=== PATIENT | female | born 1945 | race American Indian/Alaskan Native ===

== ENCOUNTER 2019-06-07 13:21 | Outpatient (CLI) | payer MEDICARE, OTHER ==
--- NOTE | 2019-06-08 12:59 | Mammography Report ---
DIGITAL SCREENING MAMMOGRAM WITH CAD, 06/07/2019 INDICATION: Routine screening mammography. TECHNIQUE: Digital bilateral 2D mammography was obtained in the craniocaudal and mediolateral obliq ue projections. This examination was interpreted with the benefit of Computer-Aided Detection analysi s. COMPARISON: 05/19/2018 FINDINGS: Breast Density: The breasts are heterogeneously dense, which may obscure small masses. There is no evidence of dominant mass, suspicious calcifications or architectural distortion in eithe r breast. IMPRESSION: No mammographic evidence of malignancy. Follow up recommendation: Routine yearly BI-RADS Category 1: Negative. A "normal" or negative report should not discourage follow up or biopsy of a clinically significant f inding. A written summary of these findings will be mailed to the patient. The patient will be entered into a mammography reporting system which will generate a reminder letter for the patient's next appointmen t at the appropriate interval. The [employer] recommends yearly mammograms starting at age 40 and continuing as l teddy as a woman is in good health. Breast MRI is recommended for women with an approximate 20-25% or greater lifetime risk of breast cancer, including women with a strong family history of breast or ova betty cancer or who have been treated for Hodgkin's disease. Signer Name: Filiberto Randhawa MD Signed: 06/08/2019 12:55 PM Workstation Name: [id number]
== END 2019-06-07 13:22 | disposition home or self-care (01) ==
LOC: SPVWC 13:21
PROVIDERS: ATTEND Family Medicine
DX: Z12.31 Encounter for screening mammogram for malignant neoplasm of breast (principal)
CPT/HCPCS: 77067

== ENCOUNTER 2020-08-17 14:21 | Outpatient (CLI) | payer MEDICARE, OTHER ==
--- NOTE | 2020-08-20 09:15 | Mammography Report ---
DIGITAL SCREENING MAMMOGRAM WITH CAD, 08/17/2020 CLINICAL INFORMATION / INDICATION: Routine screening mammography. TECHNIQUE: Digital bilateral 2D mammography was obtained in the craniocaudal and mediolateral obliqu e projections. This examination was interpreted with the benefit of Computer-Aided Detection analysis . COMPARISON: 06/07/2019, 05/19/2018 FINDINGS: Breast Density: The breasts are heterogeneously dense, which may obscure small masses. No dominant mass, suspicious calcifications, or architectural distortion in either breast. Bilateral benign-appearing calcifications have not significant change. IMPRESSION: No mammographic evidence of malignancy. Follow up recommendation: Routine yearly BI-RADS Category 2: Benign. A "normal" or negative report should not discourage follow up or biopsy of a clinically significant f inding. A written summary of these findings will be mailed to the patient. The patient will be entered into a mammography reporting system which will generate a reminder letter for the patient's next appointmen t at the appropriate interval. The [employer] recommends yearly mammograms starting at age 40 and continuing as l teddy as a woman is in good health. Breast MRI is recommended for women with an approximate 20-25% or greater lifetime risk of breast cancer, including women with a strong family history of breast or ova betty cancer or who have been treated for Hodgkin's disease. Signer Name: Wesley Weiner MD Signed: 08/20/2020 9:11 AM Workstation Name: [id number]
== END 2020-08-17 14:22 | disposition home or self-care (01) ==
LOC: SPVWC 14:21
PROVIDERS: ATTEND Family Medicine
DX: Z12.31 Encounter for screening mammogram for malignant neoplasm of breast (principal)
CPT/HCPCS: 77067

== ENCOUNTER 2020-10-29 15:24 | Emergency (ER) | payer MEDICARE, OTHER ==
[2020-10-29] MEDS ORDERED: ASPIRIN 325 MG TAB PO ONE ×2 (15:38→21:58)
[2020-10-29 16:28] LABS: Basophils % (Auto) 0.3 % (0.0-1.8); Eosinophils % (Auto) 0.4 % (0.0-4.3); Hematocrit 34.6 % (30.3-42.9); Hemoglobin 11.1 gm/dl (10.1-14.3); Lymphocytes % (Auto) 29.9 % (13.4-35.0); Mean Corpuscular HGB Conc 32 % (30-34); Mean Corpuscular Volume 82 fl (79-97); Monocytes # (Auto) 0.7 K/mm3 (0.0-0.8); Monocytes % (Auto) 10.2 % (0.0-7.3); Platelet Count 352 K/mm3 (140-440); Red Blood Count 4.21 M/mm3 (3.65-5.03); Red Cell Distribution Width 16.2 % (13.2-15.2)
--- NOTE | 2020-10-29 16:40 | XRay Report ---
CHEST 2 VIEWS INDICATION / CLINICAL INFORMATION: MAIN. COMPARISON: None available. FINDINGS: SUPPORT DEVICES: None. HEART / MEDIASTINUM: No significant abnormality. LUNGS / PLEURA: No significant pulmonary or pleural abnormality. No pneumothorax. ADDITIONAL FINDINGS: No significant additional findings. IMPRESSION: 1. No acute cardiopulmonary abnormality. Signer Name: Cooper Davies MD Signed: 10/29/2020 4:35 PM Workstation Name: [id number]
[2020-10-29 16:53] LABS: Alanine Aminotransferase 14 units/L (7-56); Albumin 4.2 g/dL (3.9-5); BUN/Creatinine Ratio 14; Blood Urea Nitrogen 14 mg/dL (7-17); Calcium 10.1 mg/dL (8.4-10.2); Hemolysis Index 3
[2020-10-29 17:39] LABS: Bilirubin,Urine NEG (Negative); Blood,Urine NEG (Negative); Color,Urine Yellow (Yellow); Mucus,Urine FEW /HPF; Protein,Urine <15 mg/dL mg/dL (Negative); Urobilinogen,Urine < 2.0 mg/dL (<2.0)
--- NOTE | 2020-10-29 18:41 | Event Note ---
ED Screening Note Date of service: 10/29/20 Time: 18:41 ED Screening Note: 75-year-old female patient with history of hypertension, hyperlipidemia, diabetes, and prior stroke presents emergency department with complaints of exertional chest pain with associated dyspnea starting 3 days ago. Symptoms have been episodic in nature but occurring more frequently. Chest pain seems to radiate into her left shoulder and left side of her neck when present. Symptoms are relieved with rest. No known history of congestive heart failure. Tachypnea noted in triage. General: Awake, appropriately interactive, no acute distress. Neck: Supple. Full range of motion intact. Cardiovascular: Regular rate and rhythm normal peripheral perfusion. Bilateral pretibial pitting edema. Pulmonary: Shortness of breath with ambulation observed. Diminished breath sounds along lung bases bilaterally. Patient is speaking normally without use of accessory muscles. Skin: No apparent rashes or lesions. Neurological: No facial asymmetry. Speech is clear. Follows commands. Patient is alert and oriented. Musculoskeletal: Moves all four extremities spontaneously with normal range of motion. Psych: Cooperative. Appropriate mood and affect. I have greeted and performed a focused rapid initial assessment of this patient. A comprehensive ED assessment and evaluation of the patient, analysis of all test results, and completion of the medical decision-making process will be conducted by additional ED providers. This initial assessment/diagnostic orders/clinical plan/treatment(s) is/are subject to change based on patients health status, clinical progression and re-assessment. Further treatment and wor kup at subsequent clinical provider's discretion. Patient/guardian urged not to elope from the ED as their condition may be serious if not clinically assessed and managed.
[2020-10-29 20:00] LABS: INR 1.17 (0.87-1.13); Partial Thromboplastin Time 28.9 Sec. (24.2-36.6)
--- NOTE | 2020-10-29 21:56 | Emergency Department Report ---
ED Shortness of Breath HPI - General Chief Complaint: Chest Pain Stated Complaint: Shortness of breath Time Seen by Provider: 10/29/20 21:19 Source: patient Mode of arrival: Ambulatory Limitations: No Limitations - History of Present Illness Initial Comments: 75-year-old female, history of asthma, CVA, diabetes, hypertension, presents to ED with complaint of shortness of breath x3 days. Patient states she has episodes where she is short of breath with wheezing. She denies any associated chest pain with it. States sometimes her heart is racing. Patient reports some exertional dyspnea, however patient reports sometimes it occurs at rest. States during one episode she awoke from sleep feeling short of breath. Patient states she has been using her inhaler at home. She denies any leg pain or swelling, cough or fever. Patient denies any history of anxiety. In reading the screening triage note, midlevel reported that patient was having exertional chest pain for 3 days that radiates to the left shoulder. I asked her specifically if this was the case and patient denies. Patient states she is having shortness of breath and it is not exertional. She states that she had a quick episode of chest pain last night but it did not last very long. Patient states she has been having left shoulder pain for 3 months. Patient denies any chest pain at this time. MD Complaint: shortness of breath -: days(s) (3) Severity: moderate Quality: other (Painless) Consistency: now resolved Improves With: rest Worsens With: nothing (`), exertion Known History Of: asthma Treatments Prior to Arrival: none - Related Data Home Oxygen Therapy: No Previous Rx's Medication Instructions Recorded Last Taken Type Aspirin 325 mg PO QDAY tablet 02/29/16 Unknown Rx AtorvaSTATin [Lipitor] 40 mg PO QHS tablet 02/29/16 Unknown Rx Felodipine (Nf) [Plendil (Nf)] 10 mg PO QDAY #30 tablet 02/29/16 Unknown Rx metFORMIN [Glucophage] 500 mg PO BIDDIAB #60 tablet 02/29/16 Unknown Rx Albuterol Sulfate [Proventil Hfa] 2 puff IH Q4HR PRN #1 hfa.aer.ad 10/29/20 Unknown Rx predniSONE [Deltasone] 50 mg PO QDAY #5 tab 10/29/20 Unknown Rx Allergies Allergy/AdvReac Type Severity Reaction Status Date / Time No Known Allergies Allergy Verified 02/11/16 20:57 ED Review of Systems ROS: Stated complaint: CHEST PAINS Other details as noted in HPI Comment: All other systems reviewed and negative Constitutional: denies: chills, fever Respiratory: SOB with exertion, wheezing. denies: cough Cardiovascular: chest pain Gastrointestinal: denies: nausea, vomiting Musculoskeletal: other (Denies leg pain or swelling) ED Past Medical Hx - Past Medical History Previous Medical History?: Yes Hx Hypertension: Yes Hx CVA: Yes Hx Congestive Heart Failure: No Hx Diabetes: Yes Hx Arthritis: No Hx Dementia: No - Surgical History Hx Pacemaker: No - Social History Smoking Status: Former Smoker - Medications Home Medications: Home Medications Medication Instructions Recorded Confirmed Last Taken Type Aspirin 325 mg PO QDAY tablet 02/29/16 Unknown Rx AtorvaSTATin [Lipitor] 40 mg PO QHS tablet 02/29/16 Unknown Rx Felodipine (Nf) [Plendil (Nf)] 10 mg PO QDAY #30 tablet 02/29/16 Unknown Rx metFORMIN [Glucophage] 500 mg PO BIDDIAB #60 tablet 02/29/16 Unknown Rx Albuterol Sulfate [Proventil Hfa] 2 puff IH Q4HR PRN #1 hfa.aer.ad 10/29/20 Unknown Rx predniSONE [Deltasone] 50 mg PO QDAY #5 tab 10/29/20 Unknown Rx ED Physical Exam - General Limitations: No Limitations General appearance: alert, in no apparent distress - Head Head exam: Present: atraumatic, normocephalic - Eye Eye exam: Present: normal appearance, EOMI - ENT ENT exam: Present: mucous membranes moist - Neck Neck exam: Present: normal inspection - Respiratory Respiratory exam: Present: wheezes (Faint). Absent: respiratory distress - Cardiovascular Cardiovascular Exam: Present: regular rate, normal rhythm - GI/Abdominal GI/Abdominal exam: Present: soft. Absent: distended, tenderness - Extremities Exam Extremities exam: Present: normal inspection - Neurological Exam Neurological exam: Present: alert, oriented X3 - Psychiatric Psychiatric exam: Present: normal affect, normal mood - Skin Skin exam: Present: warm, dry, intact, normal color ED Course Vital Signs 10/29/20 10/29/20 15:32 21:35 Temperature 97.4 F L 97.6 F Pulse Rate 97 H 100 H Respiratory 28 H 21 Rate Blood Pressure 165/78 145/63 [Right] O2 Sat by Pulse 97 95 Oximetry - Reevaluation(s) Reevaluation #1: 10/29/20 23:17 Went into speak with patient about obtaining a CTA. Patient reports that she is currently on Xarelto for PEs that were diagnosed in March 2020. We will cancel CTA. D-dimer only mildly elevated. Vital signs are stable. Patient not hypoxic. Patient already on treatment. Reevaluation #2: 10/30/20 00:30 Patient states she is feeling much better following the breathing treatment. ED Medical Decision Making - Lab Data Result diagrams: 10/29/20 16:21 10/29/20 16:21 - EKG Data -: EKG Interpreted by Me EKG shows normal: sinus rhythm, axis, intervals, QRS complexes, ST-T waves Rate: normal - EKG Data Interpretation: no acute changes - Radiology Data Radiology results: report reviewed, image reviewed - Medical Decision Making 75-year-old female with history of asthma presents to ED with shortness of breath over the last 3 days. Patient reports wheezing with exertion. States sh e had one brief episode of chest pain yesterday, but otherwise she has not been having any chest pain. Patient states she has sometimes waking up out of her sleep with shortness of breath as well. No lower extremity edema present. Faint wheezing present on exam. O2 sats are normal. During ED stay patient reported to me that she is currently on Xarelto for PE treatment, so CTA chest was canceled. D-dimer was only mildly elevated. Patient has no lower extremity pain or swelling. And vitals are normal. Labs are normal including troponin x3. EKG shows no ST changes. Patient given albuterol nebulizer treatment and IV Solu-Medrol. She states she is feeling much better at this time. Patient feels comfortable with discharge home. Discharge with prescriptions. Outpatient follow-up advised. Return precautions given. Referral form and patient information faxed to [facility] for close cardiology follow-up. - Differential Diagnosis asthma, PE, ACS, anxiety Critical care attestation.: If time is entered above; I have spent that time in minutes in the direct care of this critically ill patient, excluding procedure time. ED Disposition Clinical Impression: Dyspnea, Asthma Disposition: DC-01 TO HOME OR SELFCARE Is pt being admited?: No Condition: Stable Instructions: Shortness of Breath, Adult, [id number], Asthma, Adult, [id number], Asthma (ED) Prescriptions: predniSONE [Deltasone] 50 mg PO QDAY #5 tab Albuterol Sulfate [Proventil Hfa] 2 puff IH Q4HR PRN #1 hfa.aer.ad PRN Reason: Wheezing Referrals: PRIMARY CARE, [Primary Care Provider] - 3-5 Days Time of Disposition: 00:30 HEART Score - HEART Score History: Slightly suspicious EKG: Normal Age: > 65 Risk factors: > 3 risk factors or hx of atherosclerotic disease Troponin: Troponin T < 0.010 ng/mL (0.00-0.029) 10/29/20 21:39 Troponin: < normal limit HEART Score: 4
[2020-10-29] MEDS ORDERED: methylPREDNISolone Sod Succinate 125 MG/2 ML INJ IV ONE (23:26)
[2020-10-29] MEDS ORDERED: ALBUTEROL 2.5 MG/3 ML NEBU IH ONE (23:26)
[2020-10-29] MEDS ORDERED: IPRATROPIUM 0.02% NEBU 2.5 ML IH ONE (23:26)
[2020-10-30 00:57] VITALS: BP 127/62
--- NOTE | 2020-11-01 09:30 | Electrocardiograph Report ---
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
== END 2020-10-30 00:55 | disposition home or self-care (01) ==
LOC: ED 15:24
DX: J45.909 Unspecified asthma, uncomplicated (principal); R06.00 Dyspnea, unspecified; I10 Essential (primary) hypertension; E11.9 Type 2 diabetes mellitus without complications; Z87.891 Personal history of nicotine dependence; Z86.73 Personal history of transient ischemic attack (TIA), and cerebral infarction without residual deficits; Z79.899 Other long term (current) drug therapy
CPT/HCPCS: 36415; 71046; 80053; 81001; 83880; 84484; 85025; 85379; 85610; 85730; 93005; 96374; 99284; J2930

== ENCOUNTER 2020-11-22 14:17 | Outpatient (CLI) | payer MEDICARE, OTHER | END 2020-11-22 14:18 | disposition home or self-care (01) | LOC: SPVWC 14:17 | PROVIDERS: ATTEND Family Medicine | DX: Z13.820 Encounter for screening for osteoporosis (principal); M85.88 Other specified disorders of bone density and structure, other site; M85.89 Other specified disorders of bone density and structure, multiple sites | CPT/HCPCS: 77080 ==

== ENCOUNTER 2021-10-15 13:12 | Outpatient (CLI) | payer MEDICARE, OTHER ==
--- NOTE | 2021-10-16 09:25 | Mammography Report ---
DIGITAL SCREENING MAMMOGRAM WITH CAD, 10/15/2021 CLINICAL INFORMATION / INDICATION: Routine screening mammography. SCREENING MAMMO Z12.31 TECHNIQUE: Digital bilateral 2D mammography was obtained in the craniocaudal and mediolateral obliqu e projections. This examination was interpreted with the benefit of Computer-Aided Detection analysis . COMPARISON: 06/07/2019 FINDINGS: Breast Density: The breasts are heterogeneously dense, which may obscure small masses. No dominant mass, suspicious calcifications, or architectural distortion in either breast. Largely unchanged scattered calcifications. IMPRESSION: No mammographic evidence of malignancy. Follow up recommendation: Routine yearly BI-RADS Category 2: BENIGN. A "normal" or negative report should not discourage follow up or biopsy of a clinically significant f inding. A written summary of these findings will be mailed to the patient. The patient will be entered into a mammography reporting system which will generate a reminder letter for the patient's next appointmen t at the appropriate interval. The [employer] recommends yearly mammograms starting at age 40 and continuing as l teddy as a woman is in good health. Breast MRI is recommended for women with an approximate 20-25% or greater lifetime risk of breast cancer, including women with a strong family history of breast or ova betty cancer or who have been treated for Hodgkin's disease. Signer Name: Matt Walker MD Signed: 10/16/2021 9:20 AM Workstation Name: [id number]
== END 2021-10-15 13:13 | disposition home or self-care (01) ==
LOC: SPVWC 13:12
PROVIDERS: ATTEND Family Medicine
DX: Z12.31 Encounter for screening mammogram for malignant neoplasm of breast (principal)
CPT/HCPCS: 77067